=== PATIENT | male | born 1990 | race Caucasian/White ===

== ENCOUNTER 2021-06-21 12:31 | Emergency (ER) | payer OTHER, MEDICAID, SELFPAY ==
[2021-06-21 12:45] VITALS: BP 126/87; PULSE 88; RESP 18; TEMP 36.5; O2SAT 97; BMI 29.1
[2021-06-21] MEDS: DOXYCYCLINE HYCLATE 100 MG TABLET PO (16:49)
--- NOTE | 2021-06-21 16:51 | ED.EYEPROB ---
HPI - Eye Problem <LAMBERT Viecnte - Last Filed: 06/21/21 18:58> General Chief complaint: Eye Problems Stated complaint: Swollen eye Time Seen by Provider: 06/21/21 15:58 Source: patient Mode of arrival: Ambulatory History of Present Illness HPI Narrative: 31-year-old male presents to the emergency department with left upper eyelid swelling, redness, itchiness and pain. Patient denies any injury to his left eye, eyes any fever, facial swelling, states that is left eye is itchy, swollen, painful at the lid margin, with some discharge. Patient denies any eye pain or vision changes, denies any facial pain. Related Data Home Medications Medication Instructions Recorded Confirmed [THERAFLU] PRN #0 11/21/09 Previous Rx's Medication Instructions Recorded doxycycline hyclate 100 mg capsule 100 mg PO BID 7 Days #14 cap 06/21/21 Allergies Allergy/AdvReac Type Severity Reaction Status Date / Time cucumber Allergy Anaphylaxis Verified 06/21/21 12:51 pickles Allergy Uncoded 06/21/21 12:51 Review of Systems <LAMBERT Vicente - Last Filed: 06/21/21 18:58> Review of Systems Narrative: General: denies fever, chills, malaise, sweats, fatigue Head/Neck: denies headache, neck pain, dizziness Eyes: denies visual changes, eye pain, endorses left upper eyelid swelling and pain Cardio: denies chest pain, palpitations, edema Respiratory: denies dyspnea, cough, orthopnea GI: denies abdominal pain, nausea, vomiting, or diarrhea : denies dysuria, hematuria, urinary retention, frequency or incontinence MSK: denies joint pain, muscle weakness Skin: denies rash, itching, skin lesions or other Neuro: denies numbness, tingling Patient History <LAMBERT Vicente - Last Filed: 06/21/21 18:58> Social History Smoking Status: Current every day smoker Smoking Status: Current every day smoker Substance Use Type: marijuana Exam <LAMBERT Vicente - Last Filed: 06/21/21 18:58> Narrative Exam Narrative: Independently reviewed vitals signs and nursing notes. General: Cooperative, comfortable, in no acute distress, well developed and well groomed Head/Neck: Normal visual inspection and supple, atraumatic, no JVD or lymphadenopathy. Normal facial exam Eyes: Pupils equal round and reactive, EOMI, conjunctiva normal, no scleral icterus or injections, left upper eyelid with chalazion and purulence/granulomatous discharge is coming out of an opening in the eyelid margin. There is some discharge present in the eye, surrounding edema and erythema without signs of preseptal cellulitis, orbital cellulitis, extension to face. Approximately 0.5 cm as a single lesion, nonfluctuant, tender, centered on an eyelash. Eyelid was everted to evaluate for internal chalazion, there were no other lesions or nodules. No associated corneal abrasion. Warm packs were used in the ER as discharge was already coming out of the nodule, expressed discharge from the nodule until it was empty, at first it appeared granulomatous, then became more purulence with likely pus. This was cultured and sent to lab. Nose: External nose normal, nares patent, no rhinorrhea, without purulent drainage Mouth/Throat: uvula midline, moist mucus membranes Cardio: Regular rate and rhythm, no peripheral edema, warm extremities MSK: Moves all extremities, neurovascularly intact Skin: Normal capillary refill, no rash Neuro: Normal speech and cognition, normal gait, A&O x3, tone normal, moves all extremities Psych: Mental status is grossly normal, speech is clear, congruent mood, normal affect Initial Vital Signs Initial Vital Signs: Vital Signs Temperature 97.7 F 06/21/21 12:45 Pulse Rate 88 06/21/21 12:45 Respiratory Rate 18 06/21/21 12:45 Blood Pressure 126/87 06/21/21 12:45 Pulse Oximetry 97 06/21/21 12:45 <Pradip Meier DO - Last Filed: 06/25/21 18:49> Initial Vital Signs Initial Vital Signs: Vital Signs Temperature 97.7 F 06/21/21 12:45 Pulse Rate 88 06/21/21 12:45 Respiratory Rate 18 06/21/21 12:45 Blood Pressure 126/87 06/21/21 12:45 Pulse Oximetry 97 06/21/21 12:45 Course <LAMBERT Vicente - Last Filed: 06/21/21 18:58> Orders Ordered: Discontinued Medications Doxycycline Hyclate (Doxycycline Hyclate 100 Mg Tablet) 100 mg PO NOW ONE Stop: 06/21/21 16:44 Last Admin: 06/21/21 16:49 Dose: 100 mg Documented by: SAW Vital Signs Vital signs: Vital Signs - 8 hr 06/21/21 12:45 Temperature 97.7 F Pulse Rate 88 Respiratory Rate 18 Blood Pressure 126/87 Pulse Oximetry 97 <Pradip Meier DO - Last Filed: 06/25/21 18:49> Orders Ordered: Discontinued Medications Doxycycline Hyclate (Doxycycline Hyclate 100 Mg Tablet) 100 mg PO NOW ONE Stop: 06/21/21 16:44 Last Admin: 06/21/21 16:49 Dose: 100 mg Documented by: SAW Vital Signs Vital signs: Vital Signs - 8 hr 06/21/21 12:45 Temperature 97.7 F Pulse Rate 88 Respiratory Rate 18 Blood Pressure 126/87 Pulse Oximetry 97 MDM - Eye Problem <LAMBERT Vicente - Last Filed: 06/21/21 18:58> MDM Narrative Medical decision making narrative: 31-year-old male presents to the emergency department with 2 days of left upper eye pain with a swollen nodule consistent with a chalazia. Granulomatous discharge was expressed using sterile Q-tips, until it with empty after warm compresses, there was likely purulence which was cultured and sent to lab. Patient was given prophylactic antibiotics after he requested. He denied the need for pain medication, he was given doxycycline b.i.d. for 7 days to cover for MRSA. Differential includes blepharitis, hordeolum, herpes zoster, carcinoma of, no signs of dacryocystitis or molluscum contagiosum. Patient is appropriate and amenable to discharge home. Vital signs are stable on repeat examination is unremarkable. Patient has been informed of results. Patient has been given strict return to ER precautions for any new or worsening symptoms. Patient understands to follow up closely with outpatient providers as instructed. Patient understands plan and agrees to discharge home. All questions and concerns answered at this time. Discharge Plan Departure Patient Disposition: Home Clinical Impression: Chalazion left upper eyelid Instructions: DI for Eye Pain Activity Restrictions/Additional Instructions: *You have been diagnosed with a chalazion of your left upper lower eyelid. Please continue warm compresses 4 times a day for the next 3 days or until this improves. Please take these antibiotics for the next 7 days, twice a day. Please follow-up with your primary care provider to see how this is improving. Please take Tylenol or ibuprofen for your pain. If you have any worsening of your eye pain, or abnormal vision please see an eye doctor immediately or return to the emergency department. I have attached an vending machine filler below if you have worsening severity of your issues. *What to do: *Please continue to take your regular medications as directed. [x ] New medication prescriptions sent to your pharmacy: [ [facility]] [ ] New medication written as a paper prescription [ ] No new medications given *Please follow up with your primary care provider in 2-3 days, call for an appointment. Let them know you were seen in the Emergency Department and that we ask that you be seen in follow up. We will electronically transmit a record of today's note if your PCP is in our system *If you do not have a primary care provider please contact the [facility] Resource line at [phone]. They will ask some questions about your medical history and help get you set up with a doctor in the community. *Return to Emergency Department if you should have any new, worsening or concerning symptoms, such as [fever greater than 101F, chills, worsening pain, persistent vomiting or other bothersome symptoms] What is a chalazion?A chalazion is a painless lump in the eyelid. It is caused by a blockage in a gland that makes tears. A chalazion is different from a stye, which also causes a lump on the eyelid. But a stye is caused by an infection and is painful. A chalazion is not tender or painful, but it often lasts longer than a stye does. What are the symptoms of a chalazion?A chalazion often begins with redness and swelling. Then, a firm, painless lump forms, usually in the upper eyelid. The lump can be as large as a pea. If a chalazion forms in the lower eyelid, it looks like a yellow-white bump Is there a test for a chalazion?No. But your doctor or nurse should be able to tell if you have a chalazion by doing an exam and talking with you. Is there anything I can do on my own to treat this?Yes. You can put warm, wet pressure on the chalazion. Wet a clean washcloth with warm water and put it over your chalazion. When the washcloth cools, reheat it with warm water and put it back over the chalazion. Repeat these steps for 15 minutes, 4 times a day. You should?not?squeeze or pop your chalazion. How is chalazion treated?Most of the time, a chalazion goes away with the treatment described above within a few weeks. It might even go away on its own. But if you have a large chalazion that does not go away or keeps coming back, your doctor might refer you to an eye doctor. They can do a procedure in the office to remove the chalazion or inject a medicine into the chalazion to reduce the swelling. Prescriptions: New doxycycline hyclate 100 mg capsule 100 mg PO BID 7 Days Qty: 14 0RF No Action [THERAFLU] PRN Qty: 0 0RF Referrals: Hugo Purdy MD [Physician] - 3-5 days (if worsening) <Pradip Meier DO - Last Filed: 06/25/21 18:49> Cosign ED Attending Cosignature Attestation: I was immediately available in the department for consultation. This documentation has been reviewed and I agree with assessment and plan. Supervised by Pradip Meier DO
== END 2021-06-21 16:53 | disposition home or self-care (01) ==
PROVIDERS: Emergency Provider Nurse Practitioner Critical Care Medicine
DX: H00.14 Chalazion left upper eyelid (principal)
CPT/HCPCS: 87070; 87075; 87077; 87147; 87186; 87205; 99283